=== PATIENT | female | born 1975 ===

== ENCOUNTER 2018-04-24 13:07 | Outpatient (CLI) | payer BC ==
--- NOTE | 2018-04-24 14:35 | MMO ---
BILATERAL SCREENING MAMMOGRAM: History: 42-year-old female for baseline screening mammography. FINDINGS: This study is interpreted with the assistance of computer aided detection. Bilateral MLO and CC views of the breast show heterogeneously dense breast parenchyma, which may lowe r the sensitivity of mammography. There is no evidence of suspicious mass, suspicious cluster of micr ocalcifications, or area of architectural distortion. IMPRESSION: BIRADS category 1 - negative. Annual screening mammography is recommended. POS: [facility]
== END 2018-04-24 13:08 | disposition home or self-care (01) ==
LOC: SCSMAMMO 13:07
PROVIDERS: ATTEND Family Medicine
DX: Z12.31 Encounter for screening mammogram for malignant neoplasm of breast (principal)
CPT/HCPCS: 77067

== ENCOUNTER 2018-08-08 08:34 | Outpatient (CLI) | payer BC ==
--- NOTE | 2018-08-08 10:09 | ULT ---
SONOGRAM RIGHT UPPER QUADRANT: History: Right upper quadrant pain. FINDINGS: Gallbladder has a normal appearance. Common duct is 0.3 cm. Liver unremarkable without focal mass or intrahepatic biliary dilatation. No free fluid. IMPRESSION: Normal right upper quadrant sonogram. POS: [facility]
== END 2018-08-08 08:35 | disposition home or self-care (01) ==
LOC: SCSULT 08:34
PROVIDERS: ATTEND Family Medicine
DX: R10.11 Right upper quadrant pain (principal)
CPT/HCPCS: 76705